=== PATIENT | female | born 1945 | race Caucasian/White ===

== ENCOUNTER 2023-05-23 19:16 | Emergency (ER) | payer MEDICARE ==
--- NOTE | 2023-05-23 19:39 | ERPHSYRPT ---
- History of Present Illness Time Seen by Provider: 05/23/23 19:37 Source: patient Exam Limitations: no limitations Physician History: Patient is a 77-year-old female presents to our ED via EMS for evaluation of hypertension and a headache. Patient states that she occasionally sees floaters. No flashing lights. No acute change in vision. Patient states symptoms started 3 days ago. No associated numbness tingling or weakness. Focal or lateralizing symptomology. Patient has not taken her evening dose carvedilol. Patient headache is global. Symptoms are mild to moderate in intensity. No specific worsening improving factors. Patient voices no other complaints or concerns at this time. Portions of this note were created with voice recognition technology. There may be grammatical, spelling, punctuation or sound alike errors Timing/Duration: day(s) (2 days) Severity: moderate Modifying Factors: Improves With: nothing Associated Symptoms: denies symptoms Allergies/Adverse Reactions: cefaclor [From Ceclor] Allergy (Intermediate, Verified 05/23/23 19:50) Hives nalbuphine [From Nubain] Allergy (Intermediate, Verified 05/23/23 19:50) Itching Home Medications: Atorvastatin Calcium [Lipitor] 40 mg PO DAILY 05/23/23 [History] Carvedilol [Coreg ] 6.25 mg PO BID 05/23/23 [History] Clopidogrel Bisulfate [PLAVIX Tablet] 75 mg PO DAILY 05/23/23 [History] Escitalopram Oxalate [Lexapro] 20 mg PO HS 05/23/23 [History] Tizanidine HCl 4 mg [Zanaflex 4 MG] 4 mg PO HS 05/23/23 [History] Valsartan 160 mg PO DAILY 05/23/23 [History] - Review of Systems Constitutional: No Symptoms, No Fever, No Chills Eyes: No Symptoms Ears, Nose, & Throat: No Symptoms Respiratory: No Symptoms, No Cough, No Dyspnea Cardiac: No Symptoms, No Chest Pain, No Edema, No Syncope Abdominal/Gastrointestinal: No Symptoms, No Abdominal Pain, No Nausea, No Vomiting, No Diarrhea Genitourinary Symptoms: No Symptoms, No Dysuria Musculoskeletal: No Symptoms, No Back Pain, No Neck Pain Skin: No Symptoms, No Rash Neurological: No Symptoms, No Dizziness, No Focal Weakness, No Sensory Changes Psychological: No Symptoms Endocrine: No Symptoms Hematologic/Lymphatic: No Symptoms Immunological/Allergic: No Symptoms All Other Systems: Reviewed and Negative - Nursing Vital Signs Nursing Vital Signs: Initial Vital Signs Temperature 98.6 F 05/23/23 19:22 Pulse Rate 66 05/23/23 19:22 Respiratory Rate 16 05/23/23 19:22 Blood Pressure 205/92 05/23/23 19:22 O2 Sat by Pulse Oximetry 95 05/23/23 19:22 Pain Scale Pain Intensity 3 - Physical Exam General Appearance: no apparent distress, alert Eye Exam: PERRL/EOMI, eyes nml inspection Ears, Nose, Throat Exam: normal ENT inspection, TMs normal, pharynx normal, moist mucous membranes Neck Exam: normal inspection, non-tender, supple, full range of motion Respiratory Exam: normal breath sounds, lungs clear, No respiratory distress Cardiovascular Exam: regular rate/rhythm, normal heart sounds, normal peripheral pulses Gastrointestinal/Abdomen Exam: soft, normal bowel sounds, No tenderness, No mass Back Exam: normal inspection, normal range of motion, No CVA tenderness, No vertebral tenderness Extremity Exam: normal inspection, normal range of motion, pelvis stable Neurologic Exam: alert, oriented x 3, cooperative, normal mood/affect, nml cerebellar function, nml station & gait, sensation nml, No motor deficits Skin Exam: normal color, warm, dry, No rash Lymphatic Exam: No adenopathy SpO2 Interpretation: normal SpO2: 95 O2 Delivery: Room Air - Course Nursing assessment & vital signs reviewed: Yes EKG Interpreted by Me: RATE ([id number]), Sinus Rhythm, NORMAL AXIS, NORMAL INTERVALS - CT Exams Head CT Interpretation: Tele-radiologist Report (No comps.. Normal head) Ordered Tests: Active Orders 24 hr Category Date Time Status Artificial Breeding Technician STAT Care 05/23/23 19:38 Active EKG-ER Only STAT Care 05/23/23 19:37 Active IV Insertion STAT Care 05/23/23 19:37 Active Pulse Oximetry (ED) STAT Care 05/23/23 19:37 Active HEAD WITHOUT CONTRAST [CT] Stat Exams 05/23/23 19:35 Taken CBC W DIFF Stat Lab 05/23/23 20:08 Completed CMP Stat Lab 05/23/23 20:08 Completed CULTURE,URINE Stat Lab 05/23/23 20:47 Received TROPONIN Q4H Lab 05/23/23 20:08 Completed TROPONIN Q4H Lab 05/23/23 23:45 Ordered TROPONIN Q4H Lab 05/24/23 03:45 Ordered UA W/RFX UR CULTURE Stat Lab 05/23/23 20:47 Completed Medication Summary Generic Name Dose Route Start Last Admin Trade Name Milagros PRN Reason Stop Dose Admin Carvedilol 6.25 mg 05/24/23 20:01 05/23/23 20:22 Carvedilol 6.25 Mg Tablet PO 05/24/23 20:02 6.25 mg STAT ONE Administration Discontinued Medications Generic Name Dose Route Start Last Admin Trade Name Milagros PRN Reason Stop Dose Admin Carvedilol Confirm 05/23/23 20:12 Carvedilol 6.25 Mg Tablet Administered 05/23/23 20:13 Dose 6.25 mg .ROUTE .STK-MED ONE Nitrofurantoin Macrocrystals 100 mg 05/23/23 22:39 Nitrofurantoin Macro 100 Mg Capsule PO 05/23/23 22:40 STAT ONE Lab/Rad Data: Laboratory Result Diagrams 05/23/23 20:08 05/23/23 20:08 Laboratory Results 05/23/23 05/23/23 05/23/23 Range/Units 20:47 20:08 20:08 WBC (4.0-10.5) x10^3/uL RBC (4.1-5.4) x10^6/uL Hgb (12.0-16.0) g/dL Hct (35-47) % MCV (78-100) fL MCH (26-32) pg MCHC (32-36) g/dL RDW (11.5-14.0) % Plt Count (150-450) x10^3/uL MPV (7.5-11.0) fL Gran % (36.0-66.0) % Immature Gran % (Auto) (0.00-0.4) % Nucleat RBC Rel Count (0.00-0.1) % Eos # (Auto) (0-0.5) x10^3/uL Immature Gran # (Auto) (0.00-0.03) x10^3u/L Absolute Lymphs (auto) (1.0-4.6) x10^3/uL Absolute Monos (auto) (0.0-1.3) x10^3/uL Absolute Nucleated RBC (0.00-0.01) x10^3u/L Lymphocytes % (24.0-44.0) % Monocytes % (0.0-12.0) % Eosinophils % (0.00-5.0) % Basophils % (0.0-0.4) % Absolute Granulocytes (1.4-6.9) x10^3/uL Basophils # (0-0.4) x10^3/uL Sodium 138 (137-145) mmol/L Potassium 3.8 (3.5-5.1) mmol/L Chloride 102 (98-107) mmol/L Carbon Dioxide 28 (22-30) mmol/L Anion Gap 11.9 (5-15) MEQ/L BUN 22 H (7-17) mg/dL Creatinine 0.78 (0.52-1.04) mg/dL Estimated GFR > 60.0 ML/MIN Glucose 90 (74-106) mg/dL Calcium 9.4 (8.4-10.2) mg/dL Total Bilirubin 0.40 (0.2-1.3) mg/dL AST 24 (14-36) U/L ALT 16 (0-35) U/L Alkaline Phosphatase 89 (38-126) U/L Troponin I < 0.012 (0.000-0.034) ng/mL Serum Total Protein 7.7 (6.3-8.2) g/dL Albumin 4.3 (3.5-5.0) g/dL Urine Color Yellow (Yellow) Urine Appearance Clear (Clear) Urine pH 5.0 (4.6-8.0) Ur Specific Traver 1.010 (1.005-1.030) Urine Protein Negative (Negative) Urine Glucose (UA) Negative (Negative) mg/dL Urine Ketones Negative (Negative) Urine Blood Negative (Negative) Urine Nitrite Negative (Negative) Urine Bilirubin Negative (Negative) Urine Urobilinogen 0.2 (0.2) mg/dL Ur Leukocyte Esterase Moderate A (Negative) U Hyaline Cast (Auto) NONE SEEN (0-2) /LPF Urine Microscopic RBC 0-2 (0-5) /HPF Urine Microscopic WBC 6-10 A (0-5) /HPF Ur Epithelial Cells Rare (None Seen) /HPF Urine Bacteria None Seen (None Seen) /HPF Urine Culture Reflexed YES (NO) 05/23/23 Range/Units 20:08 WBC 7.5 (4.0-10.5) x10^3/uL RBC 4.48 (4.1-5.4) x10^6/uL Hgb 14.1 (12.0-16.0) g/dL Hct 42.1 (35-47) % MCV 94.0 (78-100) fL MCH 31.5 (26-32) pg MCHC 33.5 (32-36) g/dL RDW 12.9 (11.5-14.0) % Plt Count 203 (150-450) x10^3/uL MPV 10.2 (7.5-11.0) fL Gran % 57.6 (36.0-66.0) % Immature Gran % (Auto) 0.1 (0.00-0.4) % Nucleat RBC Rel Count 0.0 (0.00-0.1) % Eos # (Auto) 0.06 (0-0.5) x10^3/uL Immature Gran # (Auto) 0.01 (0.00-0.03) x10^3u/L Absolute Lymphs (auto) 2.42 (1.0-4.6) x10^3/uL Absolute Monos (auto) 0.62 (0.0-1.3) x10^3/uL Absolute Nucleated RBC 0.00 (0.00-0.01) x10^3u/L Lymphocytes % 32.4 (24.0-44.0) % Monocytes % 8.3 (0.0-12.0) % Eosinophils % 0.8 (0.00-5.0) % Basophils % 0.8 (0.0-0.4) % Absolute Granulocytes 4.31 (1.4-6.9) x10^3/uL Basophils # 0.06 (0-0.4) x10^3/uL Sodium (137-145) mmol/L Potassium (3.5-5.1) mmol/L Chloride (98-107) mmol/L Carbon Dioxide (22-30) mmol/L Anion Gap (5-15) MEQ/L BUN (7-17) mg/dL Creatinine (0.52-1.04) mg/dL Estimated GFR ML/MIN Glucose (74-106) mg/dL Calcium (8.4-10.2) mg/dL Total Bilirubin (0.2-1.3) mg/dL AST (14-36) U/L ALT (0-35) U/L Alkaline Phosphatase (38-126) U/L Troponin I (0.000-0.034) ng/mL Serum Total Protein (6.3-8.2) g/dL Albumin (3.5-5.0) g/dL Urine Color (Yellow) Urine Appearance (Clear) Urine pH (4.6-8.0) Ur Specific Traver (1.005-1.030) Urine Protein (Negative) Urine Glucose (UA) (Negative) mg/dL Urine Ketones (Negative) Urine Blood (Negative) Urine Nitrite (Negative) Urine Bilirubin (Negative) Urine Urobilinogen (0.2) mg/dL Ur Leukocyte Esterase (Negative) U Hyaline Cast (Auto) (0-2) /LPF Urine Microscopic RBC (0-5) /HPF Urine Microscopic WBC (0-5) /HPF Ur Epithelial Cells (None Seen) /HPF Urine Bacteria (None Seen) /HPF Urine Culture Reflexed (NO) - Progress Progress: improved Progress Note: Patient is 77-year-old female presents to our ED with a headache and hypertension. Physical exam essentially nonremarkable. We administered patient's evening dose of carvedilol. Patient observed. Blood pressure significantly improved. Testing included EKG which revealed normal sinus rhythm. CT head negative for acute intracranial pathology. CBC CMP essentially nonremarkable. Troponin negative. Urinalysis reveals urinary tract infection. Patient received an oral dose of Macrobid in our ED. A prescription for Macrobid was forwarded to patient's pharmacy. Patient dates she feels well. Patient is ready for discharge. She voices no other complaints or concerns at this time. She agrees to follow-up with her primary care doctor within 48 hours for reevaluation. Patient voices no other complaints or concerns at this time. Patient discharged blood pressure is 153/78. Portions of this note were created with voice recognition technology. There may be grammatical, spelling, punctuation or sound alike errors 05/23/23 23:00 Complexity of problem addressed is moderate acute complicated No critical care time Complex of data reviewed is moderate. Test ordered reviewed and analyzed by Dr. Baxter. No significant findings observed on today's EKG or laboratory work-up. This is in line with patient's negative physical exam. A slight urinary tract infection observed in today's urinalysis. Likely an early UTI as patient currently has no obvious symptoms. Treatment initiated with a dose of Macrobid. A prescription for Macrobid was forwarded to patient's pharmacy. Risk of complication and or risk morbidity/mortality patient management is moderate. A prescription for Macrobid forwarded to patient's pharmacy. Patient will follow-up with her primary care doctor within 48 hours. Vital stab le. Time spent to discharge patient approximately 15 minutes. Plan of care established via shared decision making. No social determinants of health present to impede follow-up. Portions of this note were created with voice recognition technology. There may be grammatical, spelling, punctuation or sound alike errors 05/23/23 23:01 Counseled pt/family regarding: lab results, diagnosis, need for follow-up, rad results - Departure Departure Disposition: Home Clinical Impression: Hypertension, Urinary tract infection Condition: Stable Critical Care Time: No Referrals: ROSETTA MIR MD [Primary Care Provider] - Follow up/PCP as directed Additional Instructions: Discharge/Care Plan FIELD-BRITNEY YEH was seen on 05/23/23 in the Emergency Room. The patient was counseled regarding Diagnosis,Lab results, Imaging studies, need for follow up and when to return to the Emergency Room. Prescriptions given: Discharge Note I have spoken with the patient and/or caregivers. I have explained the patient's condition, diagnosis and treatment plan based on the information available to me at this time. I have answered the patient's and/or caregiver's questions and addressed any concerns. The patient and/or caregivers have as good understanding of the patient's diagnosis, condition and treatment plan as can be expected at this point. The vital signs have been stable. The patient's condition is stable and appropriate for discharge from the emergency department. The patient will pursue further outpatient evaluation with the primary care physician or other designated or consulting physician as outlined in the discharge instructions. The patient and/or caregivers are agreeable to this plan of care and follow-up instructions have been explained in detail. The patient and/or caregivers have received these instruction. The patient/and or caregivers are aware that any significant change in condition or worsening of symptoms should prompt an immediate return to this or the closest emergency department or call 911. Prescriptions: Nitrofurantoin Macro 100 mg [Macrobid 100MG Capsule] 100 mg PO BID 7 Days #14 cap
[2023-05-23 20:11] LABS: Absolute Neutrophil Ct (ANC) 4.31 x10^3/uL (1.4-6.9); BASOPHIL % 0.8 % (0.0-0.4); Basophil (Absolute #) 0.06 x10^3/uL (0-0.4); Eosinophil % 0.8 % (0.00-5.0); Eosinophil (Absolute #) 0.06 x10^3/uL (0-0.5); Hematocrit 42.1 % (35-47); Hemoglobin 14.1 g/dL (12.0-16.0); IMMATURE GRAN # 0.01 x10^3u/L (0.00-0.03); IMMATURE GRAN % 0.1 % (0.00-0.4); Lymphocyte (Absolute #) 2.42 x10^3/uL (1.0-4.6); Lymphocytes % 32.4 % (24.0-44.0); Mean Corpuscular Hemoglobin 31.5 pg (26-32); Mean Corpuscular Hgb Concent. 33.5 g/dL (32-36); Mean Platelet Volume 10.2 fL (7.5-11.0); Monocyte (Absolute #) 0.62 x10^3/uL (0.0-1.3); Monocytes % 8.3 % (0.0-12.0); Neutrophil % 57.6 % (36.0-66.0); Platelet Count 203 x10^3/uL (150-450); Red Blood Count 4.48 x10^6/uL (4.1-5.4); Red Cell Distribution Width 12.9 % (11.5-14.0); White Blood Count 7.5 x10^3/uL (4.0-10.5)
[2023-05-23] MEDS ORDERED: Coreg ONE (20:12)
[2023-05-23 20:24] LABS: ALBUMIN 4.3 g/dL (3.5-5.0); ALKALINE PHOSPHATASE 89 U/L (38-126); ANION GAP 11.9 MEQ/L (5-15); BLOOD UREA NITROGEN 22 mg/dL (7-17); CHLORIDE 102 mmol/L (98-107); Calcium 9.4 mg/dL (8.4-10.2); Carbon Dioxide 28 mmol/L (22-30); Creatinine 1 0.78 mg/dL (0.52-1.04); EST GLOMERULAR FILTRATION RATE > 60.0 ML/MIN; Glucose 90 mg/dL (74-106); Potassium 3.8 mmol/L (3.5-5.1); SGOT/AST 24 U/L (14-36); SGPT/ALT 16 U/L (0-35); SODIUM 138 mmol/L (137-145); Total Protein 7.7 g/dL (6.3-8.2)
[2023-05-23 20:57] LABS: ADD URINE CULTURE? YES (NO); Appearance Clear (Clear); Bacteria None Seen /HPF (None Seen); Bilirubin Negative (Negative); Blood Negative (Negative); Epithelial Cells Rare /HPF (None Seen); Glucose, Urine Negative (Negative); Hyaline Casts NONE SEEN /LPF (0-2); Ketones Negative (Negative); Leukocyte Esterase Moderate (Negative); Nitrite Negative (Negative); Protein,Urine Dip Negative (Negative); RBC 0-2 /HPF (0-5); Urobilinogen 0.2 mg/dL (0.2)
[2023-05-23 22:17] VITALS: PULSE 60
[2023-05-23 22:18] VITALS: BP 153/78
[2023-05-23] MEDS ORDERED: Macrobid 100MG Capsule PO ONE (22:39)
[2023-05-23] MEDS ORDERED: Macrobid 100MG Capsule ONE (22:50)
[2023-05-23 23:02] VITALS: O2SAT 95
--- NOTE | 2023-05-24 08:32 | XRAY ---
Indication: Headache. Intracranial hemorrhage. Multiple contiguous axial images obtained through the head without contrast. Comparison: None Age-appropriate global atrophy. No acute intracranial hemorrhage, abnormal extra-axial fluid collection, or mass effect. Fourth ventricle is midline without hydrocephalus. Cardoza-white matter differentiation preserved. Bony calvarium intact. Visualized paranasal sinuses and mastoid air cells are clear. Impression: Negative CT head without contrast exam.
[2023-05-24] MEDS ORDERED: Coreg PO ONE (20:01)
== END 2023-05-23 23:08 | disposition home or self-care (01) ==
LOC: ED 19:16
DX: I10 Essential (primary) hypertension (principal); N39.0 Urinary tract infection, site not specified; R51.9 Headache, unspecified; Z79.02 Long term (current) use of antithrombotics/antiplatelets; Z79.899 Other long term (current) drug therapy
CPT/HCPCS: 36000; 36415; 70450; 80053; 81001; 84484; 85025; 87086; 93005; 93041; 94760; 99284; A9270-GY

== ENCOUNTER 2023-06-11 15:58 | Emergency (ER) | payer MEDICARE ==
--- NOTE | 2023-06-11 16:39 | ERPHSYRPT ---
- History of Present Illness Source: patient Exam Limitations: no limitations Patient Subjective Stated Complaint: Pt fell backwards into rock and injured her right wrist and it hurts all the way up to her shoulder Triage Nursing Assessment: Pt brought to the ER by a friend, hypertensive, rates pain as 9.5/10, entire right arm pain, neck pain, fell backwards off of a cement block and hit her head and injured her right arm, pt is on Plavix, pt has a hx of a stroke with some right sided deficits "it feels numb like it's asleep", wrist looks slightly deformed and swollen, pulses normal, skin n/w/d, denies LOC Occurred: just prior to arrival Method of Injury: fell Quality: aching Severity of Pain-Max: moderate Severity of Pain-Current: moderate Extremities Pain Location: shoulder: right, arm: right (Humerus), forearm: right, wrist: right Modifying Factors: Improves With: movement Associated Symptoms: none Hx Tetanus, Diphtheria Vaccination/Date Given: No (unsure) Hx Influenza Vaccination/Date Given: Yes Hx Pneumococcal Vaccination/Date Given: Yes <ANI THOMAS - Last Filed: 06/11/23 18:02> <THERESE GORDON - Last Filed: 06/12/23 03:19> - History of Present Illness Time Seen by Provider: 06/11/23 16:38 Physician History: This is a 77-year-old white female patient of Dr. Mir who presents to the emergency department soon after falling off a cement block onto gravel/rock beneath her. She states that she hit her head. Her friend took gravel out of her hair and she has neck pain. She does not recall all the events she is on Plavix her primary complaint is pain in the right upper extremity from the right wrist to her right shoulder. 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 Patient has history of COPD, coronary disease, lupus and psoriasis and hyperlipidemia. Patient told me that she has had morphine and hydrocodone in the past. (ANI THOMAS) Allergies/Adverse Reactions: cefaclor [From Ceclor] Allergy (Intermediate, Verified 06/11/23 16:22) Hives nalbuphine [From Nubain] Allergy (Intermediate, Verified 06/11/23 16:22) Itching Home Medications: Atorvastatin Calcium [Lipitor] 40 mg PO DAILY 05/23/23 [History] Carvedilol [Coreg ] 6.25 mg PO BID 05/23/23 [History] Clopidogrel Bisulfate [PLAVIX Tablet] 75 mg PO DAILY 05/23/23 [History] Escitalopram Oxalate [Lexapro] 20 mg PO HS 05/23/23 [History] Tizanidine HCl 4 mg [Zanaflex 4 MG] 4 mg PO HS 05/23/23 [History] Valsartan 160 mg PO BID 05/23/23 [History] Travel Risk - International Travel Have you traveled outside of the country in past 3 weeks: No - Coronavirus Screening Are you exhibiting any of the following symptoms?: No Close contact with a COVID-19 positive Pt in past 14-21 Days: No - Vaccine Status Have you recieved a Covid-19 vaccination: Yes Bdc Manager: [email or web address] - Vaccination Dates Date of 2cond Vaccination (if applicable): <ANI THOMAS - Last Filed: 06/11/23 18:02> - Review of Systems Constitutional: No Symptoms Eyes: No Symptoms Ears, Nose, & Throat: No Symptoms Respiratory: No Symptoms Cardiac: No Symptoms Abdominal/Gastrointestinal: No Symptoms Genitourinary Symptoms: No Symptoms Musculoskeletal: Neck Pain, Injury (Right shoulder right humerus right forearm and right wrist) Skin: No Symptoms Neurological: Headache Psychological: No Symptoms Endocrine: No Symptoms Hematologic/Lymphatic: No Symptoms Immunological/Allergic: No Symptoms All Other Systems: Reviewed and Negative <ANI THOMAS - Last Filed: 06/11/23 18:02> - Past Medical History Pertinent Past Medical History: Yes Cardiac History: Coronary Artery Disease, High Cholesterol, Hypertension Respiratory History: COPD Other Medical History: 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, lupus, psoriasis - Past Surgical History Past Surgical History: Yes Musculoskeletal: Orthopedic Surgery Other Surgical History: bilat shoulder surgery, back surgery and brain surgery as a child d/t polio, knee scope - Social History Smoking Status: Never smoker Exposure to second hand smoke: Yes Drug Use: none Patient Lives Alone: No <ANI THOMAS - Last Filed: 06/11/23 18:02> - Physical Exam General Appearance: no apparent distress, alert, anxiety Eyes, Ears, Nose, Throat Exam: normal ENT inspection, moist mucous membranes Neck Exam: normal inspection, supple, full range of motion, other (No tenderness in the midline but there is right paraspinous muscle tenderness to palpation) Cardiovascular/Respiratory Exam: chest non-tender, normal breath sounds, regular rate/rhythm, heart sounds normal, no ecchymosis, no respiratory distress, No rib tenderness, No subcutaneous emphysema, No crepitus Abdominal Exam: non-tender Back Exam: normal inspection, normal range of motion, No CVA tenderness, No vertebral tenderness Shoulder Exam: normal inspection, no evidence of injury, normal ROM, soft tissue tenderness Elbow/Forearm Exam: normal inspection, non-tender, no evidence of injury, normal ROM, soft tissue tenderness (Distal forearm right side) Wrist Exam: bone tenderness (Right wrist), deformity (Right wrist), soft tissue tenderness (Right wrist) Hand Exam: normal inspection, non-tender, no evidence of injury, normal ROM Neuro/Tendon Exam: normal sensation, normal motor functions, normal tendon functions, responds to pain, No no evidence tendon injury Mental Status Exam: alert, oriented x 3, cooperative Skin Exam: normal color, warm, dry SpO2 Interpretation: normal O2 Delivery: Room Air <ANI THOMAS - Last Filed: 06/11/23 18:02> - Nursing Vital Signs Nursing Vital Signs: Initial Vital Signs Blood Pressure 175/118 06/11/23 17:00 O2 Sat by Pulse Oximetry 95 06/11/23 17:00 Pain Scale Pain Intensity 5 - Course Nursing assessment & vital signs reviewed: Yes <ANI THOMAS - Last Filed: 06/11/23 18:02> - Course Nursing assessment & vital signs reviewed: Yes - Radiology Exams Shoulder X-ray Interpretation: Reviewed by me, Discussed w/ radiologist, Other (old fx , but sending to rad to read and confirmed acute fx ) Wrist X-ray Interpretation: Reviewed by me, Discussed w/ radiologist, Displaced Fracture, Other - CT Exams Head CT Interpretation: Tele-radiologist Report, Old Stroke Cervical Spine CT Interpretation: Discussed w/radiologist, Tele-radiologist Report, Other (possible post fx at C5) <THERESE GORDON - Last Filed: 06/12/23 03:19> Ordered Tests: Active Orders 24 hr Category Date Time Status CERVICAL SPINE WO CONTRAST [CT] Stat Exams 06/11/23 17:46 Completed FOREARM Stat Exams 06/11/23 16:40 Completed HEAD WITHOUT CONTRAST [CT] Stat Exams 06/11/23 17:46 Completed HUMERUS Stat Exams 06/11/23 16:07 Completed SHOULDER Stat Exams 06/11/23 16:07 Completed WRIST (MIN 3 VIEWS) Stat Exams 06/11/23 16:07 Completed Medication Summary Generic Name Dose Route Start Last Admin Trade Name Freq PRN Reason Stop Dose Admin Carvedilol 6.25 mg 06/12/23 22:57 06/11/23 23:50 Carvedilol 6.25 Mg Tablet PO 06/12/23 22:58 6.25 mg STAT ONE Administration Valsartan 160 mg 06/12/23 22:57 06/11/23 23:50 Valsartan 80 Mg Tablet PO 06/12/23 22:58 160 mg STAT ONE Administration Discontinued Medications Generic Name Dose Route Start Last Admin Trade Name Freq PRN Reason Stop Dose Admin Carvedilol Confirm 06/11/23 23:40 Carvedilol 6.25 Mg Tablet Administered 06/11/23 23:41 Dose 6.25 mg .ROUTE .STK-MED ONE Morphine Sulfate 4 mg 06/11/23 17:11 06/11/23 17:32 Morphine Sulfate 4 Mg/Ml Injection IV 06/11/23 17:12 Not Given STAT ONE Morphine Sulfate 4 mg 06/11/23 17:19 06/11/23 17:31 Morphine Sulfate 4 Mg/Ml Injection IM 06/11/23 17:20 4 mg STAT ONE Administration Morphine Sulfate Confirm 06/11/23 17:30 Morphine Sulfate 4 Mg/Ml Injection Administered 06/11/23 17:31 Dose 4 mg .ROUTE .STK-MED ONE Morphine Sulfate 4 mg 06/11/23 22:57 06/11/23 23:38 Morphine Sulfate 4 Mg/Ml Injection IV 06/11/23 22:58 4 mg STAT ONE Administration Morphine Sulfate Confirm 06/11/23 23:35 Morphine Sulfate 4 Mg/Ml Injection Administered 06/11/23 23:36 Dose 4 mg .ROUTE .STK-MED ONE Ondansetron HCl 4 mg 06/11/23 17:12 06/11/23 17:31 Zofran 4 Mg/Udtablet Orally Disintegrating PO 06/11/23 17:13 4 mg STAT ONE Administration Ondansetron HCl Confirm 06/11/23 17:30 Zofran 4 Mg/Udtablet Orally Disintegrating Administered 06/11/23 17:31 Dose 4 mg .ROUTE .STK-MED ONE Valsartan Confirm 06/11/23 23:40 Valsartan 80 Mg Tablet Administered 06/11/23 23:41 Dose 160 mg .ROUTE .STK-MED ONE - Progress Progress: improved, pain not gone completely Counseled pt/family regarding: diagnosis, need for follow-up, rad results <ANI THOMAS - Last Filed: 06/11/23 18:02> - Progress Progress: improved, re-examined Will see patient in: hospital (full admit), other (Transfer) Counseled pt/family regarding: lab results, diagnosis, need for follow-up, rad results <THERESE GORDON - Last Filed: 06/12/23 03:19> - Progress Progress Note: 06/11/23 18:02 I am transferring care to Dr. Lon Gordon at 6 PM our shift change today. He will follow-up with the results of the study and make final disposition. (ANI THOMAS) 06/11/23 18:27 Pt received at change of shift from Dr. Thomas after intro, and discussion of pending labs and rads, Also comorbidities of being on blood thinnner and falling. Discussed risks and benefits of CT head and C spine, CBC, CMP, UA, with pt and spouse and they wish top proceed - ttests ordered and later discussed with pt and spouse. hX INDEPENDLY COLLABORATED WITH spouse as an additional independent source. 06/11/23 19:31 Discussed/consulted with radiologist for reading of C Spine and that there could be a fx and we are contacting for consultation trauma now. 06/11/23 19:52 Dr. Watson confirmed also the right shoulder has acute fx over the old one and acute fx right radius. Discussed with pt and will seek consultation to trauma regional and pt agrees. 06/11/23 20:[address] Logan at [facility] but they could not accept as no neurosurgeon available. We are contacting [facility] to request trauma transfer now. They accepted her for transfer toGround transport has arrived to take pt to [facility] at [facility], but the helicopter cannot fly and the ground transport is still not available so we will observe her and wait. 06/11/23 23:22 06/12/23 03:16 Ground transport has arrived to take the pt to [facility]. (THERESE GORDON) Medical Desision Making - Discussion of managment Care discussed with:: specialist Reviewed:: Test results, Need for additional workup Agreed on:: Treatment plan, need for follow-up, decision to admit (Transfer) Will see patient: in hospital - Diagnostic Testing Diagnostic test were ordered, analyzed, and reviewed by me: Yes Radiological Interpretation: Reviewed by me, Discussed w/ radiologist, Teleradiologist Report - Risk of complications The pt has a mod risk of morbidity or mortality based on: Need for prescription drug management The pt has a high risk of morbidity or mortality based on: Decision regarding hospitilization or escalation of hosp level of care <THERESE GORDON - Last Filed: 06/12/23 03:19> - Departure Departure Disposition: Home Critical Care Time: No <ANI THOMAS - Last Filed: 06/11/23 18:02> - Departure Departure Disposition: Transfer Critical Care Time: No <THERESE GORDON - Last Filed: 06/12/23 03:19> - Departure Clinical Impression: Fall with significant injury, C5 fracture posterior element, Humeral head fracture, Distal radius fracture Condition: Good Referrals: ROSETTA MIR MD [Primary Care Provider] - Follow up/PCP as directed
[2023-06-11] MEDS ORDERED: MORPHINE SULFATE 4 MG INJ IV ONE ×2 (17:11→22:57)
[2023-06-11] MEDS ORDERED: ZOFRAN ODT 4 MG PO ONE (17:12)
[2023-06-11] MEDS ORDERED: MORPHINE SULFATE 4 MG INJ IM ONE (17:19)
[2023-06-11] MEDS ORDERED: MORPHINE SULFATE 4 MG INJ ONE ×2 (17:30→23:35)
[2023-06-11] MEDS ORDERED: ZOFRAN ODT 4 MG ONE (17:30)
--- NOTE | 2023-06-11 18:42 | XRAY ---
CLINICAL HISTORY:Fall injury COMPARISON:None. TECHNIQUE:Different pulse sequences were performed in different planes without contrast injection for the brain. Images were sent through PACs for interpretation. FINDINGS: Old ischemic infarction is seen involving the genu of the corpus callosum and extending to both frontal regions. Prominent extra-axial CSF spaces and ventricular system. No intra or extra-axial hematoma seen. No evidence of brain parenchymal contusion. Central midline structures. Normal appearance of the posterior fossa structures. Normal bony features of the calvarium and skull base. IMPRESSION: 1. Old cerebral ischemic infarction. 2. Age-related brain involutional changes. 3. No trauma-related findings. Electronically Signed by: Niki Gates MD. (06/11/2023 17:41:04 TRAVELING BUYER)
--- NOTE | 2023-06-11 19:10 | XRAY ---
CLINICAL HISTORY:Fall injury COMPARISON:None. TECHNIQUE:Thin axial CT of the cervical spine was performed with sagittal and coronal reconstructions without contrast. FINDINGS: The physiologic cervical lordosis is lost. There is a grade 1 anterolisthesis of C4 over C5. A cortical step-off deformity is seen at the postero-inferior aspect of the C5 vertebral body, evident on sagittal reconstruction only. Bilateral facet arthropathy is observed from C2-C3 to C6-C7 levels. There is uncovertebral hypertrophy at the right C5-C6 and C6-C7 levels. Osteophytes are seen along the anterior endplates of the vertebral bodies. There is generalized reduced bone density. The vertebral bodies are normal in height. The craniovertebral measures are unremarkable. Level by Level analysis: C2-C3: No central canal or neuroforaminal stenosis. C3-C4: There is mild narrowing of the right neural foramen. C4-C5: There is mild narrowing of the right neural foramen. C5-C6: No central canal or neuroforaminal stenosis. C6-C7: No central canal or neuroforaminal stenosis. IMPRESSION: 1. A cortical step-off deformity at the postero-inferior aspect of the C5 vertebral body is evident on sagittal reconstruction only. This may represent a trabeculation, however, fracture cannot be totally ruled out. 2. Grade 1 anterolisthesis of C4 over C5. 3. Bilateral facet arthropathy from C2-C3 to C6-C7 levels and uncovertebral hypertrophy at right C5-C6 and C6-C7 levels, with mild narrowing of the right neural foramen at C3-C4 and C4-C5 levels. MRI correlation is suggested for further evaluation. 4. Cervical spondylosis. 5. Osteopenia. The [facility] ER was called at [phone] at 06:00 PM SCREW DOWN, 06/11/2023, and significant medical findings results were verbally informed to Alan Stein. Electronically Signed by: Niki Gates MD. (06/11/2023 18:08:32 SCREW DOWN)
--- NOTE | 2023-06-11 19:52 | XRAY ---
Indication: Pain following fall. Comparison: None 3 view right shoulder demonstrates comminuted impacted humeral head fracture. Elsewhere osteopenia, humeral head orthopedic tack, and distal clavicle resection. No other bony, articular, or soft tissue abnormalities.
--- NOTE | 2023-06-11 19:56 | XRAY ---
Indication: Pain following fall. Comparison: None 2 view right humerus demonstrates comminuted impacted humeral head fracture. Elsewhere osteopenia, humeral head orthopedic tack, and distal clavicle resection. No other bony, articular, or soft tissue abnormalities. Comment: Fracture not reported by interpreting ER clinician. Telephone report was given to Dr. Seals at 1950 hrs. on June 11, 2023.
--- NOTE | 2023-06-11 19:58 | XRAY ---
Indication: Pain following fall. Comparison: None 2 view right forearm demonstrates comminuted displaced distal radius fracture with intra-articular extension and soft tissue swelling. Also tiny nondisplaced ulnar styloid fracture. Elsewhere osteopenia and mild 1st metacarpal multangular degenerative changes. No other bony, articular, or soft tissue abnormalities.
--- NOTE | 2023-06-11 19:58 | XRAY ---
Indication: Pain following fall. Comparison: None 3 view right wrist demonstrates comminuted displaced distal radius fracture with intra-articular extension and soft tissue swelling. Also tiny nondisplaced ulnar styloid fracture. Elsewhere osteopenia and mild 1st metacarpal multangular degenerative changes. No other bony, articular, or soft tissue abnormalities.
[2023-06-11] MEDS ORDERED: DIOVAN 80 MG ONE (23:40)
[2023-06-11] MEDS ORDERED: Coreg ONE (23:40)
[2023-06-12 03:36] VITALS: BP 173/71; PULSE 86; RESP 20; O2SAT 96
[2023-06-12 03:40] VITALS: TEMP 97.2
[2023-06-12] MEDS ORDERED: DIOVAN 80 MG PO ONE (22:57)
[2023-06-12] MEDS ORDERED: Coreg PO ONE (22:57)
== END 2023-06-12 03:30 | disposition short-term general hospital (02) ==
LOC: ED 15:58
DX: S12.490A Other displaced fracture of fifth cervical vertebra, initial encounter for closed fracture (principal); S42.291A Other displaced fracture of upper end of right humerus, initial encounter for closed fracture; S52.501A Unspecified fracture of the lower end of right radius, initial encounter for closed fracture; W17.89XA Other fall from one level to another, initial encounter; E78.5 Hyperlipidemia, unspecified; I10 Essential (primary) hypertension; Z79.02 Long term (current) use of antithrombotics/antiplatelets; Z79.899 Other long term (current) drug therapy
CPT/HCPCS: 70450; 72125; 73030; 73060; 73090; 73110; 96372; 96374; 96376; 99285; J2270; L3908; Q0162; A9270-GY